=== PATIENT | female | born 2000 | race Caucasian/White ===

== ENCOUNTER 2018-04-02 19:32 | Emergency (ER) | payer OTHER ==
--- NOTE | 2018-04-02 19:52 | PDOC ---
Rapid Medical Evaluation Time Seen by Provider: 04/02/18 19:51 Medical Evaluation: Allergies Allergy/AdvReac Type Severity Reaction Status Date / Time Penicillins Allergy Intermediate Difficulty Verified 03/23/16 11:42 Breathing 04/02/18 19:53 Pt presents for vaginal discomfort after using vagisil. Exam: NAD Orders: urine, uc, gc/chlamydia testing Pt to proceed to ED for further evalaution Discharge Disposition - Diagnosis Vaginal discomfort - Referrals - Patient Instructions - Post Discharge Activity
[2018-04-02 19:56] VITALS: BP 114/74; PULSE 71; TEMP 98.1; BMI 21.0
[2018-04-02 21:10] LABS: URINE APPEARANCE SLCLOUDY; URINE BILIRUBIN NEGATIVE (<2.0 mg/dL); URINE COLOR LTYELLOW; URINE GLUCOSE (UA) NEGATIVE (NEGATIVE); URINE KETONE NEGATIVE (NEGATIVE); URINE LEUK ESTERASE 3+ (NEGATIVE); URINE NITRITE NEGATIVE (NEGATIVE); URINE PROTEIN NEGATIVE (NEGATIVE)
[2018-04-02 21:11] LABS: HCG,QUALITATIVE URINE Negative
[2018-04-02 21:26] LABS: EPI CELLS MODERATE /HPF (FEW); URINE MUCUS RARE
--- NOTE | 2018-04-02 21:45 | PDOC ---
History of Present Illness - General Chief Complaint: Vaginal Sxs Stated Complaint: DISCOMFORT Time Seen by Provider: 04/02/18 19:51 - History of Present Illness Initial Comments: 04/02/18 21:41 18-year-old female without comorbidities presents for evaluation of vaginal irritation times one day. She states 2 days ago she used a new soap with possibly of perfume she may have been ALLERGIC to yesterday she began vaginal itching and irritation and today she now has discharge. No systemic symptoms Past History - Past Medical History Allergies/Adverse Reactions: Allergies Allergy/AdvReac Type Severity Reaction Status Date / Time Penicillins Allergy Intermediate Difficulty Verified 03/23/16 11:42 Breathing Home Medications: Ambulatory Orders Fluconazole [Diflucan] 150 mg PO ONCE #1 tablet 04/02/18 Asthma: Yes - Suicide/Smoking/Psychosocial Hx Smoking History: Unknown if ever smoked Hx Alcohol Use: No Drug/Substance Use Hx: No Review of Systems - Review of Systems : Yes: Discharge *Physical Exam - Vital Signs Last Vital Signs Temp Pulse Resp BP Pulse Ox 98.1 F 71 20 114/74 99 04/02/18 19:52 04/02/18 19:52 04/02/18 19:52 04/02/18 19:52 04/02/18 19:52 - Physical Exam Comments: 04/02/18 21:42 HEAD: NC/AT EYES: Conjuntiva clear Ears: Canals and TM's normal NOSE: No d/c THROAT: Moist mucous membrances, oral pharanx clear, uvula midline NECK: Supple without adenopathy CARDIAC: S1 S2 LUNGS: CTA Full and Equal breath sounds ABDOMEN: Soft NT ND MS: Full ROM in all joints without edema NEUROLOGIC: No gross sensory or motor deficits, NVID SKIN: Normal color and temperature no lesions or rashes Pelvic examination was done with female nurse in the room. There is a white cottage cheese like vaginal discharge. No adnexal tenderness. External genitalia is normal Moderate Sedation - Procedure Monitoring Vital Signs: Procedure Monitoring Vital Signs Temperature 98.1 F 04/02/18 19:52 Pulse Rate 71 04/02/18 19:52 Respiratory Rate 20 04/02/18 19:52 Blood Pressure 114/74 04/02/18 19:52 O2 Sat by Pulse Oximetry (%) 99 04/02/18 19:52 ED Treatment Course - ADDITIONAL ORDERS Additional order review: Laboratory Results 04/02/18 20:30 Urine Color Ltyellow Urine Appearance Slcloudy Urine pH 6.0 Ur Specific [place] 1.019 Urine Protein Negative Urine Glucose (UA) Negative Urine Ketones Negative Urine Blood Negative Urine Nitrite Negative Urine Bilirubin Negative Urine Urobilinogen 2.0 H Ur Leukocyte Esterase 3+ H Urine WBC (Auto) 22 Urine RBC (Auto) 4 Ur Epithelial Cells Moderate Urine Mucus Rare Urine HCG, Qual Negative *DC/Admit/Observation/Transfer Diagnosis at time of Disposition: Vaginal discomfort, Yeast infection - Discharge Dispostion Disposition: HOME Condition at time of disposition: Stable Decision to Admit order: No - Referrals Referrals: Fela Aviles MD [Primary Care Provider] - - Patient Instructions Printed Discharge Instructions: DI for Vaginal Yeast Infection Additional Instructions: Please take Diflucan as directed. Return to the emergency room should symptoms worsen or go unresolved and follow-up with your head swamper in one to 2 days for further evaluation and treatment options. - Post Discharge Activity
== END 2018-04-02 21:57 | disposition home or self-care (01) ==
LOC: JERFT 19:32
DX: B37.3 Candidiasis of vulva and vagina (principal)
CPT/HCPCS: 36415; 81003; 81015; 84703; 87086; 87491; 87591; 99281-25

== ENCOUNTER 2018-07-01 14:20 | Emergency (ER) | payer OTHER ==
--- NOTE | 2018-07-01 14:36 | PDOC ---
Rapid Medical Evaluation Chief Complaint: Nausea/Vomiting Time Seen by Provider: 07/01/18 14:35 Medical Evaluation: Allergies Allergy/AdvReac Type Severity Reaction Status Date / Time Penicillins Allergy Intermediate Difficulty Verified 07/01/18 14:34 Breathing 07/01/18 14:35 I have performed a brief in-person evaluation of this patient. The patient presents with a chief complaint of nausea, +. States occasional vomiting, unable to tolerate meals Pertinent physical exam finding: NAD even and unlabored breathing I have ordered the following: Urinalysis, cbc, bhcg, cmp The patient will procedd to the ED for further evaluation. Discharge Disposition - Diagnosis Nausea - Referrals - Patient Instructions - Post Discharge Activity
[2018-07-01 14:37] VITALS: BP 104/72; PULSE 92; TEMP 98.2; BMI 21.2
[2018-07-01] MEDS ORDERED: SODIUM CHLORIDE 0.9% 500 ML INFUS.BAG IV ONE (14:37)
[2018-07-01 15:06] LABS: BASO % 0.3 % (0-2.0); EOS % 0.7 % (0-4.5); HEMOGLOBIN 13.3 GM/dL (10.7-15.3); LYMPH % 16.6 % (8-40); MCH 28.5 pg (25.7-33.7); MCHC 34.9 g/dl (32.0-36.0); MEAN CELL VOLUME 81.6 fl (80-96); MEAN PLT VOLUME 8.3 fl (7.5-11.1); MONO % 9.4 % (3.8-10.2); PLATELET COUNT 289 K/MM3 (134-434); RBC 4.65 M/mm3 (3.60-5.2); RDW 13.2 % (11.6-15.6); WHITE BLOOD COUNT 11.3 K/mm3 (4.0-10.0)
[2018-07-01 15:16] LABS: HCG,QUALITATIVE URINE Positive
--- NOTE | 2018-07-01 15:20 | PDOC ---
History of Present Illness - General Chief Complaint: Nausea/Vomiting Stated Complaint: NAUSEA/VOMITING Time Seen by Provider: 07/01/18 14:35 - History of Present Illness Initial Comments: 07/01/18 15:19 18-year-old female without comorbidities, 6 weeks presents for evaluation of nausea 3 days with 3 episodes of vomiting 3 days ago. Past History - Past Medical History Allergies/Adverse Reactions: Allergies Allergy/AdvReac Type Severity Reaction Status Date / Time Penicillins Allergy Intermediate Difficulty Verified 07/01/18 14:34 Breathing Home Medications: Ambulatory Orders Metoclopramide HCl [Reglan] 10 mg PO TID #30 tablet 07/01/18 Vit 108/Iron/Folic AC [ One Tablet] 1 each PO DAILY #30 tablet 07/01/18 Asthma: Yes COPD: No CHF: No - Suicide/Smoking/Psychosocial Hx Smoking History: Never smoked Hx Alcohol Use: No Drug/Substance Use Hx: No Review of Systems - Review of Systems Constitutional: No: Fever ABD/GI: Yes: Nausea, Vomiting *Physical Exam - Vital Signs Last Vital Signs Temp Pulse Resp BP Pulse Ox 98.2 F 92 H 17 104/72 98 07/01/18 14:34 07/01/18 14:34 07/01/18 14:34 07/01/18 14:34 07/01/18 14:34 - Physical Exam Comments: 07/01/18 15:20 HEAD: NC/AT EYES: Conjuntiva clear Ears: Canals and TM's normal NOSE: No d/c THROAT: Moist mucous membrances, oral pharanx clear, uvula midline NECK: Supple without adenopathy CARDIAC: S1 S2 LUNGS: CTA Full and Equal breath sounds ABDOMEN: Soft NT ND MS: Full ROM in all joints without edema NEUROLOGIC: No gross sensory or motor deficits, NVID SKIN: Normal color and temperature no lesions or rashes ED Treatment Course - LABORATORY CBC & Chemistry Diagram: 07/01/18 14:48 07/01/18 14:48 - ADDITIONAL ORDERS Additional order review: Laboratory Results 07/01/18 15:04 Urine HCG, Qual Positive - Medications Given in the ED: ED Medications Discontinued Medications Generic Name Dose Route Start Last Admin Trade Name Freq PRN Reason Stop Dose Admin Sodium Chloride 1,000 ml 07/01/18 14:37 07/01/18 15:06 Normal Saline - IV 07/01/18 14:38 1,000 ml ONCE ONE Administration Medical Decision Making - Medical Decision Making 07/01/18 16:28 Improved after IV fluids and reglan *DC/Admit/Observation/Transfer Diagnosis at time of Disposition: Nausea, Nausea and vomiting in - Discharge Dispostion Disposition: HOME Condition at time of disposition: Stable Decision to Admit order: No - Prescriptions Prescriptions: Metoclopramide HCl [Reglan] 10 mg PO TID #30 tablet - Referrals Referrals: Fela Aviles MD [Primary Care Provider] - - Patient Instructions Additional Instructions: Please take the Reglan as needed for nausea. Return to the emergency room should symptoms worsen. A multivitamin was also sent here pharmacy please take that daily. Return to the emergency room for worsening symptoms and follow-up with your primary care TRAY DRIER OPERATOR in one to 2 days for further evaluation and treatment options. - Post Discharge Activity
[2018-07-01] MEDS ORDERED: METOCLOPRAMIDE HCL INJECTION 10 MG/2 ML VIAL IVPB ONE (15:27)
[2018-07-01 15:36] LABS: ALBUMIN 4.4 g/dl (3.4-5.0); ALK PHOS 40 U/L (45-117); ANION GAP 7 MMOL/L (8-16); BILIRUBIN,TOTAL 1.3 mg/dL (0.2-1); BLOOD UREA NITROGEN 12 mg/dL (7-18); CALCIUM 9.5 mg/dL (8.5-10.1); CHLORIDE 101 mmol/L (98-107); CO2 27 mmol/L (21-32); CREATININE 0.5 mg/dL (0.55-1.3); GLUCOSE,RANDOM 80 mg/dL (74-106); POTASSIUM 4.4 mmol/L (3.5-5.1); SGOT/AST 16 U/L (15-37); SGPT/ALT 19 U/L (13-61); SODIUM 135 mmol/L (136-145); TOT PROT 7.9 g/dl (6.4-8.2)
[2018-07-01] MEDS ORDERED: METOCLOPRAMIDE HCL INJECTION 10 MG/2 ML VIAL ONE (15:36)
[2018-07-01 15:50] LABS: URINE APPEARANCE CLEAR; URINE BILIRUBIN NEGATIVE (NEGATIVE); URINE COLOR YELLOW; URINE GLUCOSE (UA) NEGATIVE (NEGATIVE); URINE KETONE NEGATIVE (NEGATIVE); URINE LEUK ESTERASE NEGATIVE (NEGATIVE); URINE NITRITE NEGATIVE (NEGATIVE); URINE PROTEIN NEGATIVE (NEGATIVE)
== END 2018-07-01 16:48 | disposition home or self-care (01) ==
LOC: JERFT 14:20
PROC: 3E033GC Introduction of Other Therapeutic Substance into Peripheral Vein, Percutaneous Approach (ICD-10-PCS; principal; 2018-07-01)
DX: O26.891 Other specified pregnancy related conditions, first trimester (principal); O21.0 Mild hyperemesis gravidarum; Z3A.01 Less than 8 weeks gestation of pregnancy
CPT/HCPCS: 36415; 80053; 81003; 84703; 85025; 96374; 99282-25

== ENCOUNTER 2018-07-28 12:19 | Emergency (ER) | payer OTHER | END 2018-07-28 14:40 | disposition home or self-care (01) | LOC: JERFT 12:19 ==

== ENCOUNTER 2018-07-31 00:23 | Emergency (ER) | payer OTHER | END 2018-07-31 04:20 | disposition home or self-care (01) | LOC: JER 00:23 ==

== ENCOUNTER 2018-08-04 17:18 | Emergency (ER) | payer OTHER ==
[2018-08-04 17:26] VITALS: BMI 21.2
[2018-08-04 18:10] LABS: URINE APPEARANCE CLEAR; URINE BILIRUBIN NEGATIVE (NEGATIVE); URINE COLOR YELLOW; URINE GLUCOSE (UA) NEGATIVE (NEGATIVE); URINE KETONE NEGATIVE (NEGATIVE); URINE LEUK ESTERASE NEGATIVE (NEGATIVE); URINE NITRITE NEGATIVE (NEGATIVE); URINE PROTEIN NEGATIVE (NEGATIVE); URINE UROBILINOGEN 0.2 mg/dL (0.2-1.0)
[2018-08-04 18:51] LABS: HEMATOCRIT 33.9 % (32.4-45.2); MCH 28.7 pg (25.7-33.7); MEAN CELL VOLUME 81.2 fl (80-96); RBC 4.18 M/mm3 (3.60-5.2); WHITE BLOOD COUNT 12.6 K/mm3 (4.0-10.0)
[2018-08-04 18:52] LABS: BASO % 0.3 % (0-2.0); EOS % 1.3 % (0-4.5); LYMPH % 17.2 % (8-40); MCHC 35.3 g/dl (32.0-36.0); MEAN PLT VOLUME 7.6 fl (7.5-11.1); MONO % 6.8 % (3.8-10.2); NEUT % 74.4 % (42.8-82.8); RDW 13.5 % (11.6-15.6)
[2018-08-04 18:53] LABS: PLATELET ESTIMATE ADEQUATE
[2018-08-04 18:59] LABS: PLATELET COUNT 245 K/MM3 (134-434)
--- NOTE | 2018-08-04 19:14 | PDOC ---
History of Present Illness - General Chief Complaint: Vaginal Bleeding Stated Complaint: VAGINAL BLEEDING Time Seen by Provider: 08/04/18 17:39 History Source: Patient Exam Limitations: No Limitations Past History - Travel Traveled outside of the country in the last 30 days: No Close contact w/someone who was outside of country & ill: No - Past Medical History Allergies/Adverse Reactions: Allergies Allergy/AdvReac Type Severity Reaction Status Date / Time Penicillins Allergy Intermediate Difficulty Verified 08/04/18 17:26 Breathing Home Medications: Ambulatory Orders Metoclopramide HCl [Reglan] 10 mg PO TID #30 tablet 07/01/18 Mv-Mn/Iron/FA/Herbal/Digestive [ One Tablet] 1 each PO DAILY #30 tablet 07/01/18 Miconazole Nitrate [Miconazole 7] 100 mg VG ASDIR #7 supp.vag 07/28/18 Nitrofurantoin Monohyd/M-Cryst [Macrobid -] 100 mg PO BID #14 capsule 07/28/18 Asthma: Yes COPD: No CHF: No - Reproductive History Is Patient Now?: Yes (#): 1 Para: 0 - Suicide/Smoking/Psychosocial Hx Smoking History: Never smoked Hx Alcohol Use: No Drug/Substance Use Hx: No Review of Systems - Review of Systems Able to Perform ROS?: Yes Comments:: 08/04/18 19:04 CONSTITUTIONAL: Absent: fever, chills, diaphoresis, generalized weakness, malaise, loss of appetite HEENT: Absent: rhinorrhea, nasal congestion, throat pain, throat swelling, difficulty swallowing, mouth swelling, ear pain, eye pain, visual Changes CARDIOVASCULAR: Absent: chest pain, loss of consciousness, palpitations, irregular heart rate, peripheral edema RESPIRATORY: Absent: cough, shortness of breath, dyspnea with exertion, orthopnea, wheezing, stridor, hemoptysis GASTROINTESTINAL: Absent: abdominal pain, abdominal distension, nausea, vomiting, diarrhea, constipation, melena, hematochezia GENITOURINARY: Present: vaginal bleeding; Absent: dysuria, frequency, urgency, hesitancy, hematuria, flank pain, genital pain MUSCULOSKELETAL: Absent: myalgia, arthralgia, joint swelling SKIN: Absent: rash, itching, pallor HEMATOLOGIC/IMMUNOLOGIC: Absent: easy bleeding, easy bruising, lymphadenopathy, frequent infections ENDOCRINE: Absent: unexplained weight gain, unexplained weight loss, heat intolerance, cold intolerance NEUROLOGIC: Absent: headache, focal weakness or paresthesias, dizziness, unsteady gait, seizure, mental status changes, bladder or bowel incontinence PSYCHIATRIC: Absent: anxiety, depression, suicidal or homicidal ideation, hallucinations. Is the patient limited Mongolian proficient: No *Physical Exam - Vital Signs Last Vital Signs Temp Pulse Resp BP Pulse Ox 98.4 F 83 18 117/62 99 08/04/18 17:23 08/04/18 17:23 08/04/18 17:23 08/04/18 17:23 08/04/18 17:23 - Physical Exam Comments: 08/04/18 19:04 GENERAL: Well developed, well nourished. Awake and alert. No acute distress. HEENT: Normocephalic, atraumatic. PERRLA, EOMI. No conjunctival pallor. Sclera are non- icteric. Moist mucous membranes. Oropharynx is clear. NECK: Supple. Full ROM. No JVD. Carotid pulses 2+ and symmetric. No lymphadenopathy. CARDIOVASCULAR: Regular rate and rhythm. No murmurs, rubs, or gallops. Distal pulses are 2+ and symmetric. PULMONARY: No evidence of respiratory distress. Lungs clear to auscultation bilaterally. No wheezing, rales or rhonchi. ABDOMINAL: Soft. Non-tender. Non-distended. No rebound or guarding. No organomegaly. Normoactive bowel sounds. Pelvic: External genitalia normal without lesions. Vaginal vault is with minimal blood. Cervix is long and closed. No cervical motion tenderness. Uterus is nontender and normal in size. Adnexa are nontender and without masses. MUSCULOSKELETAL Normal range of motion at all joints. No bony deformities or tenderness. No CVA tenderness. EXTREMITIES: No cyanosis. No clubbing. No edema. No calf tenderness. SKIN: Warm and dry. Normal capillary refill. No rashes. No jaundice. NEUROLOGICAL: Alert, awake, appropriate. Cranial nerves 2-12 intact. No deficits to light touch and temperature in face, upper extremities and lower extremities. No motor deficits in the in face, upper extremities and lower extremities. Normoreflexic in the upper and lower extremities. Normal speech. Toes are down- going bilaterally. Gait is normal without ataxia. PSYCHIATRIC: Cooperative. Good eye contact. Appropriate mood and affect. ED Treatment Course - LABORATORY CBC & Chemistry Diagram: 08/04/18 17:58 - ADDITIONAL ORDERS Additional order review: Laboratory Results 08/04/18 17:58 Urine Color Yellow Urine Appearance Clear Urine pH 6.0 Ur Specific [place] 1.012 Urine Protein Negative Urine Glucose (UA) Negative Urine Ketones Negative Urine Blood Negative Urine Nitrite Negative Urine Bilirubin Negative Urine Urobilinogen 0.2 Ur Leukocyte Esterase Negative 08/04/18 17:58 RBC 4.18 MCV 81.2 MCHC 35.3 RDW 13.5 MPV 7.6 Neutrophils % 74.4 D Lymphocytes % 17.2 D Monocytes % 6.8 Eosinophils % 1.3 Basophils % 0.3 - RADIOLOGY Radiology Studies Ordered: Category Date Time Status <14WKS US [US] Stat Ultrasound 08/04/18 17:45 Taken Medical Decision Making - Medical Decision Making 08/04/18 19:05 The patient is a 18 F , who presents to the ER with vaginal bleeding since this morning. Pt states that the bleeding was scant and picked up during the course of the day. She states she had intercourse this morning. She was seen one week ago for similar issues and has an IUP approximately 11 weeks gestation. Denies fevers, chills, abdominal pain, dysuria, hematuria, vaginal discharge. Pt was also recently treated for a UTI A/P: Vaginal bleeding On exam, scant blood in the vaginal vault. Cervix is closed Pt O-. Recieved Rhogam last week for her first onset of vaginal bleeding Basic labs ordered along with US and urine Pending US reading and beta Sign out given to RADHA Garcia *DC/Admit/Observation/Transfer Diagnosis at time of Disposition: Threatened - Discharge Dispostion Disposition: HOME Condition at time of disposition: Stable - Referrals - Patient Instructions Printed Discharge Instructions: DI for Threatened Additional Instructions: Your Discharge Instructions: You must call primary care physician within 24 hours to arrange follow-up. Return to the Emergency Department with any new, persistent or worsening symptoms, for fever, chills, SOB, dizziness or any other concerning changes that may occur. - Post Discharge Activity
--- NOTE | 2018-08-04 19:43 | PDOC ---
*Physical Exam - Vital Signs Last Vital Signs Temp Pulse Resp BP Pulse Ox 98.4 F 83 18 117/62 99 08/04/18 17:23 08/04/18 17:23 08/04/18 17:23 08/04/18 17:23 08/04/18 17:23 ED Treatment Course - LABORATORY CBC & Chemistry Diagram: 08/04/18 17:58 - ADDITIONAL ORDERS Additional order review: Laboratory Results 08/04/18 08/04/18 17:58 17:58 Beta HCG, Quant 93967.2 Urine Color Yellow Urine Appearance Clear Urine pH 6.0 Ur Specific [place] 1.012 Urine Protein Negative Urine Glucose (UA) Negative Urine Ketones Negative Urine Blood Negative Urine Nitrite Negative Urine Bilirubin Negative Urine Urobilinogen 0.2 Ur Leukocyte Esterase Negative 08/04/18 17:58 RBC 4.18 MCV 81.2 MCHC 35.3 RDW 13.5 MPV 7.6 Neutrophils % 74.4 D Lymphocytes % 17.2 D Monocytes % 6.8 Eosinophils % 1.3 Basophils % 0.3 Medical Decision Making - Medical Decision Making 08/04/18 19:42 Patient was endorsed to me to follow ultrasound and disposition. Patient is in no acute distress. Patient Full Name: ELLIOT SUAREZ Patient Accession No: [id number] Patient : 2000 Reason for Exam: vag bleeding 10 weeks preg Referring Physician: TOA ROJO Patient Name: DANIELA ZARATE THIS IS A PRELIMINARY REPORT FROM IMAGING EDUCATIONAL PROGRAM DIRECTOR DATE OF SERVICE: 2018-08-04 18:17:48 IMAGES: 34 EXAM: <14WKS US HISTORY: 10 weeks with vaginal bleeding COMPARISON: None. FINDINGS: There is a single live intrauterine gestation with heart rate of 168 bpm Approximate age of 10 weeks, 4 days by mean crown-rump length of 3.69 cm A yolk sac is present Amniotic fluid volume is subjectively adequate No evidence of subchorionic hemorrhage The cervix is closed and measures 2.6 cm in length The ovaries are normal in size and appearance with arterial and venous flow demonstrated to both ovaries on Doppler evaluation No adnexal masses visualized No free fluid THIS DOCUMENT HAS BEEN ELECTRONICALLY SIGNED Raffaele Pruitt MD 08/04/2018 19:19 KOURTNEY Hussein Please call Imaging Erecting Crane Operator [phone] with questions. INTERPRETING RADIOLOGIST: Raffaele Pruitt MD Electronically Signed: Aug 04, 2018 07:21PM EDT I discussed the physical exam findings, ancillary test results and final diagnoses with the patient. I answered all of the patient's questions. The patient was satisfied with the care received and felt comfortable with the discharge plan and treatment plan. The Patient agrees to follow up with the primary care physician within 24-72 hours. *DC/Admit/Observation/Transfer Diagnosis at time of Disposition: Threatened - Discharge Dispostion Disposition: HOME Condition at time of disposition: Stable - Referrals - Patient Instructions Printed Discharge Instructions: DI for Threatened Additional Instructions: Your Discharge Instructions: You must call primary care physician within 24 hours to arrange follow-up. Return to the Emergency Department with any new, persistent or worsening symptoms, for fever, chills, SOB, dizziness or any other concerning changes that may occur. - Post Discharge Activity
[2018-08-04 19:44] VITALS: BP 106/66; PULSE 78; TEMP 98.1
== END 2018-08-04 20:07 | disposition home or self-care (01) ==
LOC: JER 17:18
DX: O26.891 Other specified pregnancy related conditions, first trimester (principal); O20.0 Threatened abortion; Z3A.10 10 weeks gestation of pregnancy
CPT/HCPCS: 36415; 76801-TC; 81003; 84702; 85025; 86850; 86870; 86900; 86901; 86902; 87086; 99282-25

== ENCOUNTER 2018-09-19 22:13 | Emergency (ER) | payer OTHER ==
[2018-09-19 22:39] VITALS: BP 90/57; PULSE 82; TEMP 99; BMI 22.6
--- NOTE | 2018-09-19 23:15 | PDOC ---
Documentation entered by Ruba Hernandez SCRIBE, acting as scribe for Shiloh Montalvo DO. Shiloh Montalvo DO: This documentation has been prepared by the David mcclain Adrianna, SCRIBE, under my direction and personally reviewed by me in its entirety. I confirm that the documentation accurately reflects all work, treatment, procedures, and medical decision making performed by me. Attending Attestation - Resident Resident Name: Jose EduardoNeri - ED Attending Attestation I have performed the following: I have examined & evaluated the patient, The case was reviewed & discussed with the resident, I agree w/resident's findings & plan, Exceptions are as noted - HPI HPI: The patient is a 18 F (currently at 17 weeks gestation), with no significant PMH, who presents to the ED for evaluation of vaginal discharge, itching and burning for 2 days. Patient reports thick, white vaginal discharge w / itching that started yesterday. She notes dysuria that began today. Denies abdominal pain or vaginal bleeding. Denies fever, chills, nausea, vomit, diarrhea, chest pain, SOB. Allergies: Penicillins Surgical History: None reported Social History: Denies EtOH, tobacco, or illicit drug use PCP: Dr. Aviles OBDENISE: Dr. Valenzuela - Physicial Exam PE: Constitutional: Awake, alert, oriented. No acute distress. Head: Normocephalic. Atraumatic Eyes: PERRL. EOMI. Conjunctivae are not pale. ENT: Mucous membranes are moist and intact. Posterior pharynx without exudates or erythema. Uvula midline. Neck: Supple. Full ROM. No lymphadenopathy. Cardiovascular: Regular rate. Regular rhythm. S1, S2 regular. Distal pulses are 2+ and symmetric. Pulmonary/Chest: No evidence of respiratory distress. Clear to auscultation bilaterally No wheezing, rales or rhonchi. Abdominal: +Gravid below umbilicus. Soft. There is no tenderness. No rebound , guarding or rigidity. No organomegaly. No palpable masses. Good bowel sounds. Back: No CVA tenderness. Musculoskeletal: No edema. No cyanosis. No clubbing. Full range of motion in all extremities. No calf tenderness. Radial/pedal pulses are intact and 2+ bilaterally Skin: Skin is warm and dry. No petechiae. No purpura. Neurological: Alert and oriented to person, place, and time. Cranial nerves II -XII are grossly intact. Normal speech. Strength is grossly symmetric. No sensory deficits. Psychiatric: Good eye contact. Normal interaction, affect and behavior. - Medical Decision Making 09/19/18 23:05 I, Dr. Shiloh Montalvo, DO, attest that this document has been prepared under my direction and personally reviewed by me in its entirety. I further attest, that it accurately reflects all work, treatment, procedures and medical decision -making performed by me. 09/19/18 23:05 18yo at 17 weeks gestation with vaginal itching and discharge -also with dysuria today -follows w dr. valenzuela -no vaginal bleeding -no f/c -2 days of symptoms -pelvic per the resident -pocus shows iup at 17w with fhr 143 -will send ua, ucx, will need treatment for yeast infection -aptima sent from ua 09/20/18 00:27 pt with uti and yeast infection will give topical cream for yeast infection and macrobid for uti will repeat vitals if improved bp, stable for dc to home
--- NOTE | 2018-09-19 23:49 | PDOC ---
History of Present Illness - General Chief Complaint: Vaginal Sxs Stated Complaint: VAGINAL DISCOMFORT (4 MONTHS AND 2 WEEKS ) Time Seen by Provider: 09/19/18 22:36 History Source: Patient Exam Limitations: No Limitations - History of Present Illness Initial Comments: 09/19/18 23:44 18 yo female pmh asthma, G1PO currently 17 weeks presents to the ED for 2 days of vaginal itching/burning with cottage cheese white discharge and suprapubic abdominal pain/burning and increased frequency on urination. Pt last OB check (Dr. Martin) 09/12 with reported normal dopplers FHR in the 160s. No concerns during , up to date on [employer] checks, denies vaginal bleed , abdominal pain, back pain, F/C/N/V, CP, SOB. Past History - Past Medical History Allergies/Adverse Reactions: Allergies Allergy/AdvReac Type Severity Reaction Status Date / Time Penicillins Allergy Intermediate Difficulty Verified 09/19/18 22:29 Breathing Home Medications: Ambulatory Orders Metoclopramide HCl [Reglan] 10 mg PO TID #30 tablet 07/01/18 Mv-Mn/Iron/FA/Herbal/Digestive [ One Tablet] 1 each PO DAILY #30 tablet 07/01/18 Miconazole Nitrate [Miconazole 7] 100 mg VG ASDIR #7 supp.vag 07/28/18 Clotrimazole [Gyne-Lotrimin] 21 gm VG DAILY 7 Days #7 cream.appl 09/19/18 Nitrofurantoin Monohyd/M-Cryst [Macrobid -] 100 mg PO BID #10 capsule 09/20/18 Asthma: Yes COPD: No CHF: No - Reproductive History (#): 1 Para: 0 - Suicide/Smoking/Psychosocial Hx Smoking History: Never smoked Hx Alcohol Use: No Drug/Substance Use Hx: No Review of Systems - Review of Systems Constitutional: No: Chills, Fever Respiratory: No: Shortness of Breath Cardiac (ROS): No: Chest Pain, Edema ABD/GI: No: Constipated, Diarrhea, Nausea, Vomiting : Yes: Burning, Dysuria, Discharge, Frequency Musculoskeletal: No: Back Pain *Physical Exam - Vital Signs Last Vital Signs Temp Pulse Resp BP Pulse Ox 99 F 82 18 90/57 L 98 09/19/18 22:27 09/19/18 22:27 09/19/18 22:27 09/19/18 22:27 09/19/18 22:27 - Physical Exam General Appearance: Yes: Nourished, Appropriately Dressed. No: Apparent Distress HEENT: positive: EOMI Neck: positive: Supple. negative: Carotid bruit Respiratory/Chest: positive: Lungs Clear, Normal Breath Sounds. negative: Respiratory Distress, Rales, Rhonchi, Stridor, Wheezing Cardiovascular: positive: Regular Rhythm, Regular Rate, S1, S2. negative: Edema , JVD, Murmur Vascular Pulses: Dorsalis-Pedis (R): 4+, Doralis-Pedis (L): 4+ Female Pelvic Exam: positive: normal external exam, cervical os closed, normal adnexa. negative: CMT, adnexal tenderness, vaginal bleeding Gastrointestinal/Abdominal: positive: Soft. negative: Pulsatile Mass, Guarding , Rebound, Tenderness Musculoskeletal: negative: CVA Tenderness Extremity: positive: Normal Capillary Refill, Normal Inspection Integumentary: positive: Normal Color, Dry, Warm Neurologic: positive: Fully Oriented, Alert, Normal Mood/Affect, Normal Response Medical Decision Making - Medical Decision Making 09/19/18 23:50 18 yo female pmh asthma, G1PO currently 17 weeks presents to the ED for 2 days of vaginal itching/burning with cottage cheese white discharge and suprapubic abdominal pain/burning and increased frequency on urination. Pt last OB check (Dr. Martin) 09/12 with reported normal dopplers FHR in the 160s. No concerns during , up to date on [employer] checks, denies vaginal bleed , abdominal pain, back pain, F/C/N/V, CP, SOB. vitals stable, BP recheck bedside trans abdominal US shows live IUP. See attending note NAD, AOX3, ambulates without difficulty 09/20/18 00:47 UA shows evidence of UTI will treat with Macrobid due to Pen allergy Pelvic exam show thick white discharge with cottage cheese appearance, pt has hx of yeast infection Likely yeast infection, will treat with local antifungal sent urine gc/chlam pt safe for DC home with PCP and [employer] f/u *DC/Admit/Observation/Transfer Diagnosis at time of Disposition: UTI (urinary tract infection) - Discharge Dispostion Disposition: HOME Condition at time of disposition: Stable Decision to Admit order: No - Prescriptions Prescriptions: Clotrimazole [Gyne-Lotrimin] 21 gm VG DAILY 7 Days #7 cream.appl Nitrofurantoin Monohyd/M-Cryst [Macrobid -] 100 mg PO BID #10 capsule - Referrals Referrals: Fela Aviles MD [Primary Care Provider] - - Patient Instructions Printed Discharge Instructions: DI for Urinary Tract Infection (UTI) Additional Instructions: Please see your Primary Doctor within the next 48 hours and your [employer] as soon as possible. Take the antibiotic and antifungal medication as prescribed for your yeast infection and UTI. Return to the ER for new or concerning symptoms including but not limited to: fevers, difficulty eating or drinking, abdominal pain, vaginal discharge/bleeding. Thank you - Post Discharge Activity
[2018-09-20 00:16] LABS: EPI CELLS 9.1 /HPF (0-5/HPF); HYALINE CASTS 8 /lpf (0-8); URINE APPEARANCE CLOUDY; URINE BACTERIA 72.6 /hpf (NEGATIVE); URINE BILIRUBIN NEGATIVE (NEGATIVE); URINE COLOR YELLOW; URINE GLUCOSE (UA) NEGATIVE (NEGATIVE); URINE KETONE NEGATIVE (NEGATIVE); URINE LEUK ESTERASE 1+ (NEGATIVE); URINE NITRITE NEGATIVE (NEGATIVE); URINE PROTEIN NEGATIVE (NEGATIVE); URINE RBC 2 /hpf (0-4); URINE UROBILINOGEN 0.2 mg/dL (0.2-1.0); URINE WBC 2 /hpf (0-5)
[2018-09-20] MEDS ORDERED: NITROFURANTOIN MACROCRYSTAL 50 MG CAPSULE (FP) PO SCH (00:30)
[2018-09-20] MEDS ORDERED: NITROFURANTOIN MACROCRYSTAL 50 MG CAPSULE (FP) ONE (00:37)
== END 2018-09-20 00:51 | disposition home or self-care (01) ==
LOC: JER 22:13
DX: O23.42 Unspecified infection of urinary tract in pregnancy, second trimester (principal); Z3A.17 17 weeks gestation of pregnancy; Z88.0 Allergy status to penicillin
CPT/HCPCS: 36415; 76815; 81003; 87086; 87491; 87591; 99283-25

== ENCOUNTER 2018-10-07 20:05 | Emergency (ER) | payer OTHER ==
--- NOTE | 2018-10-07 20:42 | PDOC ---
Rapid Medical Evaluation Time Seen by Provider: 10/07/18 20:40 Medical Evaluation: Allergies Allergy/AdvReac Type Severity Reaction Status Date / Time Penicillins Allergy Intermediate Difficulty Verified 09/19/18 22:29 Breathing 10/07/18 20:40 HPI: 5 months gravid c/o dysuria and vagianl d/c PE: No gross deficits ORDERS: UA and Cx Discharge Disposition - Diagnosis Vaginal discomfort - Referrals - Patient Instructions - Post Discharge Activity
[2018-10-07 20:45] VITALS: BP 114/47; PULSE 86; TEMP 98.3; BMI 23.6
--- NOTE | 2018-10-07 21:36 | PDOC ---
History of Present Illness - General Chief Complaint: Vaginal Sxs Stated Complaint: VAGINAL DISCOMFORT Time Seen by Provider: 10/07/18 20:40 History Source: Patient, Old Records Exam Limitations: No Limitations - History of Present Illness Travel History: No Initial Comments: 10/07/18 21:45 HISTORY OF PRESENT ILLNESS: This is a 18-year-old prima with an LMP of and 2 date of 02/23/19 who presents emergency department for evaluation of vaginal discharge, lower back pain, vaginal itching and burning. Patient reports she was recently seen and treated for UTI as well as a yeast infection. Patient reports having multiple [place] infection during this . Patient admits to having slight dysuria but denies any fevers or chills. No recent travel or sick contacts. PAST MEDICAL HISTORY: Denies past medical history SURGICAL HISTORY: Denies ALLERGIES: PCN REVIEW OF SYSTEMS General/Constitutional: Denies fever or chills. Denies weakness, weight change. HEENT: Denies change in vision. Denies ear pain or discharge. Denies sore throat. Cardiovascular: Denies chest pain or shortness of breath. Respiratory: Denies cough, wheezing, or hemoptysis. Gastrointestinal: Denies nausea, vomiting, diarrhea or constipation. Denies rectal bleeding. Genitourinary: see HPI Musculoskeletal: Denies joint or muscle swelling or pain. Denies neck or back pain. Skin and breasts: Denies rash or easy bruising. Neurologic: Denies headache, vertigo, loss of consciousness, or loss of sensation. Psychiatric: Denies depression or anxiety. Endocrine: Denies increased thirst. Denies abnormal weight change. Hematologic/Lymphatic: Denies anemia, easy bleeding, or history of blood clots. Allergic/Immunologic: Denies hives or skin allergy. Denies latex allergy. PHYSICAL EXAM General Appearance: Well-appearing, appropriately dressed. No apparent distress , no intoxication. Respiratory/Chest: Lungs CTAB. No shortness of breath, chest tenderness, respiratory distress, accessory muscle use. No crackles, rales, rhonchi, stridor , wheezing, dullness Cardiovascular: RRR. S1, S2. No JVD, murmur, bradycardia, tachycardia. Vascular Pulses: Dorsalis-Pedis (R): 2+, Dorsalis-Pedis (L): 2+ Gastrointestinal/Abdominal: Normal bowel sounds. Gravid abdomen. No pulsatile mass, guarding, hernia, hepatomegaly, splenomegaly. Lymphatic: No adenopathy, tenderness. Musculoskeletal/Extremities: Normal inspection. FROM of all extremities, normal capillary refill. Pelvis Stable. No CVA tenderness. No tenderness to extremities, pedal edema, swelling, erythema or deformity. Past History - Past Medical History Allergies/Adverse Reactions: Allergies Allergy/AdvReac Type Severity Reaction Status Date / Time Penicillins Allergy Intermediate Difficulty Verified 09/19/18 22:29 Breathing Home Medications: Ambulatory Orders Metoclopramide HCl [Reglan] 10 mg PO TID #30 tablet 07/01/18 Mv-Mn/Iron/FA/Herbal/Digestive [ One Tablet] 1 each PO DAILY #30 tablet 07/01/18 Miconazole Nitrate [Miconazole 7] 100 mg VG ASDIR #7 supp.vag 07/28/18 Clotrimazole [Gyne-Lotrimin] 21 gm VG DAILY 7 Days #7 cream.appl 09/19/18 Nitrofurantoin Monohyd/M-Cryst [Macrobid -] 100 mg PO BID #10 capsule 10/08/18 metroNIDAZOLE 0.75% VAG. 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 Female Pelvic Exam: positive: normal external exam, cervical os closed, normal adnexa, discharge (malodorous thin green cervical discharge). negative: CMT, adnexal tenderness, vaginal bleeding ED Treatment Course - LABORATORY CBC & Chemistry Diagram: 10/07/18 22:15 10/07/18 22:15 Medical Decision Making - Medical Decision Making 10/07/18 21:47 A/P: 18-year-old female with lower back pain and vaginal discharge in regnancy CBC, CMP, type and screen, beta hCG Urinalysis, urine culture Ultrasound Reassess 10/07/18 23:24 Ultrasound as read by Dr. Zimmer: Single viable intrauterine gestation at approximately 20 weeks 1 day. heart rate 159. No definite sonographic abnormality is identified. Urinalysis notable for 3+ leuk esterase and 62 WBCs on high-power field. Discharge home with prescription for Macrobid and MetroGel to treat trichomoniasis and urinary tract infection. Patient will be sent to labor and delivery for evaluation. 10/08/18 00:03 Marcelino on labor and delivery is aware of patient and need for monitoring. *DC/Admit/Observation/Transfer Diagnosis at time of Disposition: Vaginal discomfort UTI (urinary tract infection) Qualifiers: Urinary tract infection type: acute cystitis Hematuria presence: without hematuria Qualified Code(s): N30.00 - Acute cystitis without hematuria - Discharge Dispostion Disposition: HOME Condition at time of disposition: Stable Decision to Admit order: No - Prescriptions Prescriptions: metroNIDAZOLE 0.75% VAG. GEL [Metrogel 0.75% *Vaginal Gel* -] 1 applic VG HS 5 Days #1 tube Nitrofurantoin Monohyd/M-Cryst [Macrobid -] 100 mg PO BID #10 capsule - Referrals Referrals: Fela Aviles MD [Primary Care Provider] - - Patient Instructions Additional Instructions: Rest, drink lots of fluids: Teas, water, soups Avoid contact with others until fevers and symptoms resolved Lots of handwashing and good hygiene Continue [id number] medications for symptomatic relief Tylenol for fever and pain Continue all of antibiotics until completed Followup with private physician in one week for repeat urinalysis/reevaluation Return to emergency department for worsened symptoms, fevers, dehydration - Post Discharge Activity
--- NOTE | 2018-10-07 21:42 | PDOC ---
*Physical Exam - Vital Signs Last Vital Signs Temp Pulse Resp BP Pulse Ox 98.3 F 86 20 114/47 L 98 10/07/18 20:40 10/07/18 20:40 10/07/18 20:40 10/07/18 20:40 10/07/18 20:40 Medical Decision Making - Medical Decision Making 10/07/18 21:41 Patient seen by the advanced practice provider under my direct supervision. Ancillary testing reviewed as necessary. I agree with plan as outlined by the advanced practice provider. *DC/Admit/Observation/Transfer Diagnosis at time of Disposition: Vaginal discomfort - Referrals Referrals: Fela Aviles MD [Primary Care Provider] - - Patient Instructions - Post Discharge Activity
[2018-10-07 22:40] LABS: EPI CELLS 5.5 /HPF (0-5/HPF); HYALINE CASTS 23 /lpf (0-8); PH,URINE 5.5 (5.0-8.0); URINE APPEARANCE CLOUDY; URINE BACTERIA 796.4 /hpf (NEGATIVE); URINE BILIRUBIN NEGATIVE (NEGATIVE); URINE COLOR YELLOW; URINE GLUCOSE (UA) NEGATIVE (NEGATIVE); URINE KETONE NEGATIVE (NEGATIVE); URINE LEUK ESTERASE 3+ (NEGATIVE); URINE NITRITE NEGATIVE (NEGATIVE); URINE PROTEIN NEGATIVE (NEGATIVE); URINE RBC 2 /hpf (0-4); URINE WBC 62 /hpf (0-5)
[2018-10-07 22:50] LABS: BASO % 0.1 % (0-2.0); EOS % 1.8 % (0-4.5); HEMATOCRIT 31.7 % (32.4-45.2); HEMOGLOBIN 11.3 GM/dL (10.7-15.3); LYMPH % 18.2 % (8-40); MCH 29.8 pg (25.7-33.7); MCHC 35.5 g/dl (32.0-36.0); MEAN CELL VOLUME 83.9 fl (80-96); MEAN PLT VOLUME 8.4 fl (7.5-11.1); MONO % 8.6 % (3.8-10.2); NEUT % 71.3 % (42.8-82.8); PLATELET COUNT 192 K/MM3 (134-434); RBC 3.78 M/mm3 (3.60-5.2); RDW 13.2 % (11.6-15.6); WHITE BLOOD COUNT 11.7 K/mm3 (4.0-10.0)
[2018-10-07 23:46] LABS: ALBUMIN 3.2 g/dl (3.4-5.0); BILIRUBIN,TOTAL 0.3 mg/dL (0.2-1); BLOOD UREA NITROGEN 7.4 mg/dL (7-18); CALCIUM 8.4 mg/dL (8.5-10.1); CREATININE 0.5 mg/dL (0.55-1.3); POTASSIUM 3.5 mmol/L (3.5-5.1); TOT PROT 6.5 g/dl (6.4-8.2)
== END 2018-10-08 02:00 | disposition home or self-care (01) ==
LOC: JERFT 20:05 → JER 20:05
DX: N30.00 Acute cystitis without hematuria (principal); N89.8 Other specified noninflammatory disorders of vagina
CPT/HCPCS: 36415; 76815-TC; 80053; 81003; 84702; 85025; 87070; 87077; 87086; 87205; 99283-25

== ENCOUNTER 2018-12-15 18:16 | Emergency (ER) | payer OTHER ==
[2018-12-15 18:20] VITALS: BMI 26.5
[2018-12-15 19:48] VITALS: BP 124/70; PULSE 92; TEMP 98.4
[2018-12-15] MEDS ORDERED: DEXTROSE 5%-LACTATED RINGERS 500 ML IV ONE ×2 (20:15→21:15)
--- NOTE | 2018-12-16 02:38 | PDOC ---
Documentation entered by Emre Pruitt SCRIBE, acting as scribe for Ayanna Ornelas MD. Ayanna Ornelas MD: This documentation has been prepared by the Sonal mcclain Nirvannie, SCRIBE, under my direction and personally reviewed by me in its entirety. I confirm that the documentation accurately reflects all work, treatment, procedures, and medical decision making performed by me. History of Present Illness - General Chief Complaint: Injury Stated Complaint: FALL (30 WKS ) Time Seen by Provider: 12/15/18 18:24 History Source: Patient Exam Limitations: No Limitations - History of Present Illness Initial Comments: 12/15/18 18:46 The patient is a 18 year old 30 weeks female A0, with no significant past medical history, who presents to the emergency department s/p mechanical fall with, tailbone pain. As per patient, she was walking her dog at which time she tripped over it subsequently falling on her side in attempt to not fall onto her stomach. While in the ED, patients only complaint is pain to the tailbone. She denies any vaginal bleeding, pelvic cramping, or abnormal discharge, She denies recent fevers, chills, headache or dizziness. She denies recent nausea, vomit, diarrhea or constipation. She denies recent dysuria, frequency, urgency or hematuria. She denies recent chest pain or shortness of breath. Allergies: Penicillins. Due Date: February 23 MUSICAL PERFORMER: Dr. Valenzuela Past History - Past Medical History Allergies/Adverse Reactions: Allergies Allergy/AdvReac Type Severity Reaction Status Date / Time Penicillins Allergy Intermediate Difficulty Verified 12/15/18 18:20 Breathing Home Medications: Ambulatory Orders NK [No Known Home Medication] 12/15/18 Asthma: Yes COPD: No CHF: No - Reproductive History (#): 1 Para: 0 - Psycho Social/Smoking Cessation Hx Smoking History: Never smoked Hx Alcohol Use: No Drug/Substance Use Hx: No Review of Systems - Review of Systems Able to Perform ROS?: Yes Comments:: 12/15/18 18:46 CONSTITUTIONAL: Absent: fever, chills, diaphoresis, generalized weakness, malaise, loss of appetite HEENT: Absent: rhinorrhea, nasal congestion, throat pain, throat swelling, difficulty swallowing, mouth swelling, ear pain, eye pain, visual Changes CARDIOVASCULAR: Absent: chest pain, syncope, palpitations, irregular heart rate, lightheadedness , peripheral edema RESPIRATORY: Absent: cough, shortness of breath, dyspnea with exertion, orthopnea, wheezing, stridor, hemoptysis GASTROINTESTINAL: Absent: abdominal pain, abdominal distension, nausea, vomiting, diarrhea, constipation, melena, hematochezia GENITOURINARY: Absent: dysuria, frequency, urgency, hesitancy, hematuria, flank pain, genital pain MUSCULOSKELETAL: Present: Tailbone pain. Absent: joint swelling SKIN: Absent: rash, itching, pallor HEMATOLOGIC/IMMUNOLOGIC: Absent: easy bleeding, easy bruising, lymphadenopathy, frequent infections ENDOCRINE: Absent: unexplained weight gain, unexplained weight loss, heat intolerance, cold intolerance NEUROLOGIC: Absent: headache, focal weakness or paresthesias, dizziness, unsteady gait, seizure, mental status changes, bladder or bowel incontinence PSYCHIATRIC: Absent: anxiety, depression, suicidal or homicidal ideation, hallucinations. All Other Systems: Reviewed and Negative *Physical Exam - Vital Signs Last Vital Signs Temp Pulse Resp BP Pulse Ox 97.9 F 99 H 18 133/76 99 12/15/18 18:18 12/15/18 18:18 12/15/18 18:18 12/15/18 18:18 12/15/18 18:18 - Physical Exam Comments: 12/15/18 18:47 GENERAL: Well developed, well nourished. Awake and alert. No acute distress. HEENT: Normocephalic, atraumatic. PERRLA, EOMI. No conjunctival pallor. Sclera are non- icteric. Moist mucous membranes. Oropharynx is clear. NECK: Supple. Full ROM. No JVD. Carotid pulses 2+ and symmetric, without bruits. No thyromegaly. No lymphadenopathy. CARDIOVASCULAR: Regular rate and rhythm. No murmurs, rubs, or gallops. Distal pulses are 2+ and symmetric. PULMONARY: No evidence of respiratory distress. Lungs clear to auscultation bilaterally. No wheezing, rales or rhonchi. ABDOMINAL: Soft. Non-tender. Non-distended. No rebound or guarding. No organomegaly. Normoactive bowel sounds. MUSCULOSKELETAL Normal range of motion at all joints. No bony deformities or tenderness. No CVA tenderness. EXTREMITIES: No cyanosis. No clubbing. No edema. No calf tenderness. SKIN: Warm and dry. Normal capillary refill. No rashes. No jaundice. NEUROLOGICAL: Alert, awake, appropriate. Cranial nerves 2-12 intact. No deficits to light touch and temperature in face, upper extremities and lower extremities. No motor deficits in the in face, upper extremities and lower extremities. Normoreflexic in the upper and lower extremities. Normal speech. Toes are down- going bilaterally. Gait is normal without ataxia. PSYCHIATRIC: Cooperative. Good eye contact. Appropriate mood and affect. Medical Decision Making - Medical Decision Making 12/16/18 02:37 18-year-old female who is 30 weeks tripped over her dog and fell on her left side and buttocks. She denies any head trauma or loss of consciousness She has no focal neuro deficits She is ambulating with ease She has no extremity deformities and motor strength is 5 out of 5 bilaterally She has no midline cervical vertebral tenderness She denies any pelvic bleeding or cramping On physical exam she has some coccyx tenderness Patient was sent to L&D for further evaluation Discharge - Discharge Information Problems reviewed: Yes Clinical Impression/Diagnosis: Third trimester Fall Qualifiers: Encounter type: initial encounter Qualified Code(s): W19.XXXA - Unspecified fall, initial encounter Low back pain Qualifiers: Chronicity: acute Back pain laterality: bilateral Sciatica presence: without sciatica Qualified Code(s): M54.5 - Low back pain Condition: Good Disposition: HOME - Follow up/Referral Referrals: Elisabeth Valenzuela MD [Staff Physician] - Fela Aviles MD [Primary Care Provider] - - Patient Discharge Instructions Patient Printed Discharge Instructions: DI for Low Back Pain Additional Instructions: PLEASE REST YOU MAY TAKE TYLENOL FOR PAIN RETURN FOR WORSENING SYMPTOMS Discharge home. Normal activity as tolerated. Heating pad, hot shower or ice pack for discomfort. Use pillows for positioning. Call Dr Valenzuela in the morning. Return to the ED for worsening or persistent symptoms. Return to Labor and delivery if You start to have contractions You break your water You have any vaginal bleeding You do not feel the baby moving - Post Discharge Activity
== END 2018-12-15 22:15 | disposition home or self-care (01) ==
LOC: JER 18:16
PROC: 3E0337Z Introduction of Electrolytic and Water Balance Substance into Peripheral Vein, Percutaneous Approach (ICD-10-PCS; principal; 2018-12-15)
DX: O99.89 Other specified diseases and conditions complicating pregnancy, childbirth and the puerperium (principal); M54.5 Low back pain; W01.0XXA Fall on same level from slipping, tripping and stumbling without subsequent striking against object, initial encounter; Y93.K1 Activity, walking an animal; Y92.89 Other specified places as the place of occurrence of the external cause; Y99.8 Other external cause status; Z3A.30 30 weeks gestation of pregnancy; Z88.0 Allergy status to penicillin
CPT/HCPCS: 96360; 96361; 99282-25

== ENCOUNTER 2019-02-09 10:24 | Emergency (ER) | payer OTHER ==
[2019-02-09 10:30] VITALS: BP 133/71; PULSE 110; TEMP 98.2; BMI 30.1
[2019-02-09] MEDS ORDERED: SODIUM CHLORIDE FOR INHALATION 3 ML VIAL.NEB IH ONE (11:21)
--- NOTE | 2019-02-09 12:11 | PDOC ---
History of Present Illness - General Chief Complaint: Sore Throat Stated Complaint: SORE THROAT/CONGESTED/COUGHING Time Seen by Provider: 02/09/19 11:15 History Source: Patient Exam Limitations: No Limitations Past History - Past Medical History Allergies/Adverse Reactions: Allergies Allergy/AdvReac Type Severity Reaction Status Date / Time Penicillins Allergy Intermediate Difficulty Verified 02/09/19 10:30 Breathing Home Medications: Ambulatory Orders No122/Iron/Folic Acid [ Multi Tablet] 1 each PO DAILY 02/09/19 Sodium Chloride Inhalation [Normal Saline For Inhalation -] 3 ml IH Q6H #30 vial.neb 02/09/19 Asthma: Yes COPD: No CHF: No - Reproductive History (#): 1 Para: 0 - Psycho Social/Smoking Cessation Hx Smoking History: Never smoked Hx Alcohol Use: No Drug/Substance Use Hx: No *Physical Exam - Vital Signs Last Vital Signs Temp Pulse Resp BP Pulse Ox 98.2 F 110 H 18 133/71 99 02/09/19 10:28 02/09/19 10:28 02/09/19 10:28 02/09/19 10:28 02/09/19 10:28 - Physical Exam General Appearance: No: Apparent Distress HEENT: positive: Normal ENT Inspection, TMs Normal, Pharynx Normal Respiratory/Chest: positive: Lungs Clear, Normal Breath Sounds. negative: Respiratory Distress Cardiovascular: positive: Regular Rhythm, Regular Rate, S1, S2. negative: Murmur Gastrointestinal/Abdominal: positive: Other (gravid uterus) Neurologic: positive: Alert ED Treatment Course - Medications Given in the ED: ED Medications Discontinued Medications Generic Name Dose Route Start Last Admin Trade Name Teofiloq PRN Reason Stop Dose Admin Sodium Chloride 3 ml 02/09/19 11:21 02/09/19 11:31 Normal Saline For Inhalation - IH 02/09/19 11:22 3 ml ONCE ONE Administration Medical Decision Making - Medical Decision Making 18 y/o F currently 38 weeks presents with dry cough x 3 days along with throat discomfort. Patient started losing her voice yesterday. +rhinorrhea and mild congestion. Denies fever, sob, cp, abd pain, vomiting, vaginal bleeding. Likely viral URI/laryngitis Given saline neb with slight improvement Will be sent to OB for FHR monitoring D/W WILL Linda at L&D 02/09/19 12:05 Discharge - Discharge Information Problems reviewed: Yes Clinical Impression/Diagnosis: Laryngitis Condition: Stable Disposition: HOME - Admission No - Additional Discharge Information Prescriptions: Sodium Chloride Inhalation [Normal Saline For Inhalation -] 3 ml IH Q6H #30 vial.neb - Follow up/Referral Referrals: Fela Aviles MD [Primary Care Provider] - - Patient Discharge Instructions Patient Printed Discharge Instructions: DI for Laryngitis Additional Instructions: Thank you for choosing [facility]. It was a pleasure taking care of you. Recommend rest You may use saline neb as indicated You may use humidifier at night Follow-up with your doctor in 2-3 days Return to the Emergency Department if your symptoms worsen or persist or have other concerning symptoms. - Post Discharge Activity
== END 2019-02-09 12:16 | disposition home or self-care (01) ==
LOC: JERFT 10:24
PROC: 3E0F7GC Introduction of Other Therapeutic Substance into Respiratory Tract, Via Natural or Artificial Opening (ICD-10-PCS; principal; 2019-02-09)
DX: J04.0 Acute laryngitis (principal); Z88.0 Allergy status to penicillin; J45.909 Unspecified asthma, uncomplicated
CPT/HCPCS: 99281-25

== ENCOUNTER 2019-02-21 05:20 | Inpatient (IN) | payer OTHER ==
[2019-02-21] MEDS ORDERED: OXYTOCIN 20 UNITS in 0.9% NS 20 UNIT/1,000 ML INFUS.BAG IV ONE (05:53)
[2019-02-21] MEDS ORDERED: LIDOCAINE HCL 1% PRESERVATIVE FREE - 30ML VIAL ONE (05:53)
[2019-02-21 06:05] LABS: BASO % 0.9 % (0-2.0); EOS % 0.2 % (0-4.5); HEMATOCRIT 38.4 % (32.4-45.2); HEMOGLOBIN 13.5 GM/dL (10.7-15.3); LYMPH % 13.7 % (8-40); MCH 29.3 pg (25.7-33.7); MCHC 35.1 g/dl (32.0-36.0); MEAN CELL VOLUME 83.5 fl (80-96); MEAN PLT VOLUME 9.4 fl (7.5-11.1); MONO % 6.1 % (3.8-10.2); NEUT % 79.1 % (42.8-82.8); PLATELET COUNT 166 K/MM3 (134-434); RBC 4.59 M/mm3 (3.60-5.2); WHITE BLOOD COUNT 16.9 K/mm3 (4.0-10.0)
[2019-02-21 06:14] LABS: INR 0.92 (0.83-1.09); PROTHROMBIN TIME (PATIENT) 10.8 SEC (9.7-13.0)
[2019-02-21 06:16] LABS: ACTIVATED PTT 28.4 SECONDS (25.2-36.5)
[2019-02-21 06:26] LABS: BLOOD UREA NITROGEN 9.2 mg/dL (7-18); CALCIUM 9.3 mg/dL (8.5-10.1); CREATININE 0.6 mg/dL (0.55-1.3); POTASSIUM 3.5 mmol/L (3.5-5.1)
[2019-02-21] MEDS: OXYTOCIN 20 UNITS in 0.9% NS 20 UNIT/1,000 ML INFUS.BAG IV SCH ×2 (06:40→10:10)
[2019-02-21] MEDS ORDERED: WITCH HAZEL 50% (TUCKS) 40 PAD/JAR PAD TP PRN (06:55)
[2019-02-21] MEDS ORDERED: BENZOCAINE 28 GM HEMORRHOIDAL OINTMENT TP PRN (06:55)
[2019-02-21] MEDS ORDERED: BISACODYL 10 MG SUPP.RECT RC PRN (06:55)
[2019-02-21] MEDS ORDERED: METHYLERGONOVINE MALEATE 0.2 MG/1 ML AMP IM PRN (06:55)
--- NOTE | 2019-02-21 06:55 | HP ---
Past Medical History - Admission Chief Complaint: Labor pain History of Present Illness: 18 yo , @ 39 weeks gestation, EDC 02/23/19, admitted for labor pain. Upon admission she was fully dilated. History Source: Patient Limitations to Obtaining History: No Limitations - Past Medical History ...: 1 ...Para: 0 - Past Surgical History Past Surgical History: Yes: None Hx Myomectomy: No Hx Transabdominal Cerclage: No - Smoking History Smoking history: Never smoked - Alcohol/Substance Use Hx Alcohol Use: No - Social History Usual Living Arrangement: Yes: With Parent History of Recent Travel: No Home Medications - Allergies Allergies/Adverse Reactions: Allergies Allergy/AdvReac Type Severity Reaction Status Date / Time Penicillins Allergy Intermediate Itching Verified 02/21/19 02:09 - Home Medications Home Medications: Ambulatory Orders No122/Iron/Folic Acid [ Multi Tablet] 1 each PO DAILY 02/09/19 Family Medical History Family History: Unremarkable Review of Systems - Review of Systems Constitutional: reports: No Symptoms Eyes: reports: No Symptoms HENT: reports: No Symptoms Neck: reports: No Symptoms Cardiovascular: reports: No Symptoms Respiratory: reports: No Symptoms Gastrointestinal: reports: No Symptoms Genitourinary: reports: Pain Breasts: reports: No Symptoms Reported Musculoskeletal: reports: No Symptoms Integumentary: reports: No Symptoms Neurological: reports: No Symptoms Endocrine: reports: No Symptoms Hematology/Lymphatic: reports: No Symptoms Psychiatric: reports: No Symptoms Pain Intensity: 9 Physical Exam - Maternity Constitutional: Yes: Well Nourished Eyes: Yes: Conjunctiva Clear HENT: Yes: Atraumatic Neck: Yes: Supple Cardiovascular: Yes: Regular Rate and Rhythm Lungs: Clear to auscultation - Abdominal Exam/OB Number of Fetuses: Single Presentation: Vertex - Vaginal Exam/OB Vaginal Bleediing: No Presentation: Vertex/Position - Physical Exam ...Motor Strength: WNL Psychiatric: Yes: Alert, Oriented - Labs Lab Results: CBC, BMP 02/21/19 05:55 02/21/19 05:55 Problem List - Problems (1) Pain during labor Problems reviewed: Yes Code(s): O99.89 - OTH DISEASES AND CONDITIONS COMPL PREG/CHLDBRTH; R52 - PAIN, UNSPECIFIED Assessment/Plan Active labor Admit to L&D Anticipate
--- NOTE | 2019-02-21 06:59 | PN ---
Delivery - Delivery Vaginal Delivery: Spontaneous Episiotomy/Laceration: 1st degree EBL (cc): 300 Remarks - Remarks Remarks: Normal spontaneous vaginal delivery of a live infant boy over first degree laceration. Nose / Oropharynx suctioned @ perineum. Cord clamped and cut. Baby handed to nurse Placenta expelled spontaneously intact. Mother in stable condition.
[2019-02-21] MEDS ORDERED: DEXTROSE 5%-LACTATED RINGERS 1,000 ML IV SCH (07:00)
[2019-02-21 07:34] VITALS: BMI 31.1
[2019-02-21] MEDS: FERROUS SO4 325 MG TABLET (FP) PO SCH ×2 (08:55→17:05)
[2019-02-21] MEDS: IBUPROFEN 600 MG TABLET (FP) PO PRN ×4 (08:55→20:45)
[2019-02-21] MEDS: ACETAMINOPHEN 325 MG TABLET (FP) PO PRN ×4 (08:55→20:46)
[2019-02-21] MEDS: BENZOCAINE 20% 57 GM BOTTLE TP PRN (10:15)
[2019-02-21] MEDS: PRENATAL VITAMINS W/ FOLIC ACID TABLET (FP) PO SCH (10:30)
[2019-02-22 07:41] LABS: BASO % 0.2 % (0-2.0); EOS % 0.6 % (0-4.5); HEMATOCRIT 31.1 % (32.4-45.2); HEMOGLOBIN 10.9 GM/dL (10.7-15.3); LYMPH % 15.7 % (8-40); MCH 29.5 pg (25.7-33.7); MCHC 35.1 g/dl (32.0-36.0); MEAN CELL VOLUME 83.9 fl (80-96); MEAN PLT VOLUME 8.9 fl (7.5-11.1); MONO % 6.7 % (3.8-10.2); NEUT % 76.8 % (42.8-82.8); PLATELET COUNT 164 K/MM3 (134-434); RBC 3.71 M/mm3 (3.60-5.2); RDW 12.9 % (11.6-15.6); WHITE BLOOD COUNT 16.3 K/mm3 (4.0-10.0)
[2019-02-22] MEDS: FERROUS SO4 325 MG TABLET (FP) PO SCH ×2 (08:57→17:35)
[2019-02-22] MEDS: PRENATAL VITAMINS W/ FOLIC ACID TABLET (FP) PO SCH (10:23)
[2019-02-22] MEDS: BENZOCAINE 20% 57 GM BOTTLE TP PRN (10:31)
[2019-02-22] MEDS: IBUPROFEN 600 MG TABLET (FP) PO PRN ×3 (12:47→21:56)
[2019-02-22] MEDS: ACETAMINOPHEN 325 MG TABLET (FP) PO PRN ×3 (12:47→21:55)
[2019-02-22] MEDS ORDERED: SENNOSIDES/DOCUSATE COMBO (SENNA PLUS) TABLET (UD) PO PRN (22:00)
--- NOTE | 2019-02-22 22:36 | PN ---
Post Note - Post Date of Delivery: 02/21/19 Post Day: 1 Vital Signs: Vital Signs - 24 hr 02/22/19 02/22/19 02/22/19 01:00 05:44 09:55 Temperature 98.0 F 98.0 F 98.5 F Pulse Rate 80 86 95 H Respiratory 20 20 18 Rate Blood Pressure 125/65 121/77 113/62 02/22/19 02/22/19 14:23 21:52 Temperature 98.6 F 988.9 F H Pulse Rate 98 H 76 Respiratory 18 20 Rate Blood Pressure 120/74 105/52 L Labs: Laboratory Results - last 24 hr 02/22/19 07:08 WBC 16.3 H RBC 3.71 Hgb 10.9 Hct 31.1 L D MCV 83.9 MCH 29.5 MCHC 35.1 RDW 12.9 Plt Count 164 MPV 8.9 Absolute Neuts (auto) 12.5 H Neutrophils % 76.8 Lymphocytes % 15.7 Monocytes % 6.7 Eosinophils % 0.6 D Basophils % 0.2 Nucleated RBC % 0 - Subjective Subjective: No Complaints - Objective Afebrile: Yes Breast: Not engorged Abdomen: Soft, Non-tender Uterus: Fundus firm Vagina: Scant lochia Extremities: Non-tender - Assessment/Plan (1) (normal spontaneous vaginal delivery) Assessment: S/P Normal Plan: Routine Care
[2019-02-23] MEDS: IBUPROFEN 600 MG TABLET (FP) PO PRN (08:08)
[2019-02-23] MEDS: ACETAMINOPHEN 325 MG TABLET (FP) PO PRN (08:09)
[2019-02-23] MEDS: FERROUS SO4 325 MG TABLET (FP) PO SCH (08:48)
[2019-02-23] MEDS: PRENATAL VITAMINS W/ FOLIC ACID TABLET (FP) PO SCH (10:41)
--- NOTE | 2019-02-23 11:22 | DS ---
Physical Exam-DONOR RELATIONS MANAGER Vital Signs: Vital Signs Temperature 98.9 F 02/22/19 21:52 Pulse Rate 76 02/22/19 21:52 Respiratory Rate 20 02/22/19 21:52 Blood Pressure 105/52 L 02/22/19 21:52 O2 Sat by Pulse Oximetry (%) 100 02/21/19 07:30 Constitutional: Yes: Well Nourished, No Distress Respiratory: Yes: WNL, Regular, CTA Bilaterally Gastrointestinal: Yes: WNL, Soft ....Post : Yes: Uterus firm, Uterus non-tender Breast(s): Yes: WNL Musculoskeletal: Yes: WNL Extremities: Yes: WNL Neurological: Yes: WNL, Alert, Oriented Labs: CBC, BMP 02/22/19 07:08 02/21/19 05:55 Delivery - Delivery Vaginal Delivery: Spontaneous Type of Anesthesia: None Episiotomy/Laceration: Vaginal Extension/lac, 1st degree EBL (cc): 300 Delivery, Single - Stages of Labor Date 1st Stage Initiatied: 02/21/19 Time 1st Stage Initiated: 01:00 Date 2nd Stage Initiated: 02/21/19 Time 2nd Stage Initiated: 05:30 Date of Delivery: 02/21/19 Time of Delivery: 06:35 Time Placenta Delivered: 06:40 - 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 Gender: Male Weight: 7 lb 6 oz Position: Right, OA Total Hours ROM (Hrs/Mins): 40min - 1 Minute Total Score: 9 5 Minutes Total Score: 9 - Rozet Feeding Plan Initial Plan: Exclusive throughout hospitalization Discharge Summary Problems reviewed: Yes Reason For Visit: LABOR Current Active Problems (normal spontaneous vaginal delivery) (Acute) Pain during labor (Acute) Procedures: Principal: normal vaginal delivery Condition: Good - Instructions Diet, Activity, Other Instructions: Physical activity Resume your normal everyday activity as tolerated no heavy lifting or exercise until seen by your surgeon. You may walk unlimited francia of and climb stairs. You may resume driving the car when you feel safe and comfortable behind the wheel. No sexual activity as instructed. Wound care If you have a bandage, leave it on, and keep dry for 48-72 hours. After that time discard the outer bandage. If they are tapes on the skin under the out of bandage leave them in place. They will peel off in the next 7 to 10 days. Do Not Peel them off. You may shower the day after surgery. If there are tapes present on the skin, you may shower over them. Diet There are no dietary restrictions. Eat healthy, high-fiber foods. Drink 6 to 8 glasses of liquid each day. This will assist in keeping your bowels are regular. Pain management You may take Tylenol or acetaminophen or Ibuprofen (for example, Motrin, Advil etc.) from my pain prescription medication is ordered should be taken as prescribed for moderate to severe pain. Call MD for any of the following: Severe pain not relieved by medication Fever of 101 or higher Excessive bleeding or drainage on dressing Inability to urinate Referrals: Elisabeth Valenzuela MD [Staff Physician] - Disposition: HOME - Home Medications Comprehensive Discharge Medication List: Ambulatory Orders No122/Iron/Folic Acid [ Multi Tablet] 1 each PO DAILY 02/09/19
[2019-02-23 14:39] VITALS: BP 121/72; PULSE 88; TEMP 98.4
== END 2019-02-23 14:20 | disposition home or self-care (01) | DRG 560 ==
LOC: JLDR 05:20 → J3W 08:07
PROVIDERS: ADMIT Obstetrics & Gynecology; ATTEND Obstetrics & Gynecology
PROC: 0HQ9XZZ Repair Perineum Skin, External Approach (ICD-10-PCS; principal; 2019-02-21)
PROC: 10E0XZZ Delivery of Products of Conception, External Approach (ICD-10-PCS; 2019-02-21)
DX: O70.0 First degree perineal laceration during delivery (principal); Z3A.39 39 weeks gestation of pregnancy; Z37.0 Single live birth
CPT/HCPCS: 36415; 59409; 80048; 85025; 85461; 85610; 85730; 86593; 86850; 86900; 86901; 86999; 87389

== ENCOUNTER 2019-02-24 18:44 | Emergency (ER) | payer OTHER ==
[2019-02-24 18:59] VITALS: BMI 30.1
--- NOTE | 2019-02-24 18:59 | PDOC ---
Rapid Medical Evaluation Time Seen by Provider: 02/24/19 18:57 Medical Evaluation: Allergies Allergy/AdvReac Type Severity Reaction Status Date / Time Penicillins Allergy Intermediate Itching Verified 02/21/19 02:09 02/24/19 18:57 CC: "My legs are swollen." PE: 2+ pitting edema to b/l ankles Orders: sono Patient will proceed to ER for further evaluation. Discharge Disposition - Diagnosis Edema - Referrals Referrals: Fela Aviles MD [Primary Care Provider] - - Patient Instructions - Post Discharge Activity
--- NOTE | 2019-02-24 19:53 | PDOC ---
History of Present Illness - General Chief Complaint: Edema Stated Complaint: BOTH FEET SWELLING Time Seen by Provider: 02/24/19 18:57 History Source: Patient - History of Present Illness Initial Comments: 02/24/19 20:53 18 year old femalec/o b/l lower extremity edema with right leg worse than left. patient also reports shortness of breath worse with activity. patient is 3 days post s/p . denies abdominal pain. reports vaginal bleeding is minimal. patient reports vaginal pain. denies taking pain medication due to breast feeding. Past History - Past Medical History Allergies/Adverse Reactions: Allergies Allergy/AdvReac Type Severity Reaction Status Date / Time Penicillins Allergy Intermediate Itching Verified 02/21/19 02:09 Home Medications: Ambulatory Orders No122/Iron/Folic Acid [ Multi Tablet] 1 each PO DAILY 02/09/19 Cephalexin Monohydrate [Keflex -] 500 mg PO BID #20 capsule 02/25/19 Ibuprofen 600 mg PO QID PRN #20 tablet 02/25/19 Asthma: No Cancer: No Cardiac Disorders: No COPD: No CHF: No Diabetes: No HTN: No Seizures: No Thyroid Disease: No - Reproductive History (#): 1 Para: 0 - Psycho Social/Smoking Cessation Hx Smoking History: Never smoked Have you smoked in the past 12 months: No Hx Alcohol Use: No Drug/Substance Use Hx: No Hx Substance Use Treatment: No *Physical Exam - Vital Signs Last Vital Signs Temp Pulse Resp BP Pulse Ox 98 F 94 H 18 121/79 98 02/24/19 18:56 02/24/19 18:56 02/24/19 18:56 02/24/19 18:56 02/24/19 18:56 - Physical Exam General Appearance: Yes: Appropriately Dressed Respiratory/Chest: positive: Lungs Clear, Normal Breath Sounds. negative: Respiratory Distress, Accessory Muscle Use Cardiovascular: positive: Regular Rhythm, Regular Rate Gastrointestinal/Abdominal: positive: Normal Bowel Sounds, Soft, Other (fundus at the umbilicus). negative: Tender Musculoskeletal: positive: CVA Tenderness (L) Extremity: positive: Other (+ 2 nonpitting edema to legs right worse than left) Integumentary: positive: Normal Color, Dry, Warm Neurologic: positive: Fully Oriented, Alert Heart Score/ECG Review - History History: Slightly suspicious - Electrocardiogram EKG: Normal - Age Age: </= 45 - Risk Factors Based on the list above the patient has:: No risk factors known - Troponin Troponin: </= normal limit - Score Heart Score - Total: 0 - ECG Intrepretation Rhythm: Regular Rhythm Comment:: 02/25/19 01:43 NSR with sinus arrythmia : 70 bpm ED Treatment Course - LABORATORY CBC & Chemistry Diagram: 02/24/19 21:30 02/24/19 21:50 Medical Decision Making - Medical Decision Making 02/24/19 23:26 A: post pedal edema ; shortness of breath P: HELLP syndrome labs cbc cmp UA: + 2 leuks with large wbc. will treat BNP/ troponin: negative 02/25/19 00:46 02/25/19 02:02 cephalexin given with no adverse reaction in the ED.. will prescribe for home Discharge - Discharge Information Problems reviewed: Yes Clinical Impression/Diagnosis: Pedal edema Dyspnea Qualifiers: Dyspnea type: shortness of breath Qualified Code(s): R06.02 - Shortness of breath UTI (urinary tract infection) Qualifiers: Urinary tract infection type: acute cystitis Hematuria presence: without hematuria Qualified Code(s): N30.00 - Acute cystitis without hematuria Disposition: HOME - Additional Discharge Information Prescriptions: Cephalexin Monohydrate [Keflex -] 500 mg PO BID #20 capsule Ibuprofen 600 mg PO QID PRN #20 tablet PRN Reason: Pain - Follow up/Referral Referrals: Fela Aviles MD [Primary Care Provider] - - Patient Discharge Instructions Patient Printed Discharge Instructions: Urinary Tract Infection Additional Instructions: drink plenty of fluids keep your legs elevated. follow up with your hot worker as soon as possible. - Post Discharge Activity
[2019-02-24] MEDS ORDERED: IBUPROFEN 600 MG TABLET (FP) PO ONE ×2 (20:51→21:36)
[2019-02-24 20:57] LABS: HYALINE CASTS 22 /lpf (0-8); URINE APPEARANCE TURBID; URINE BILIRUBIN NEGATIVE (NEGATIVE); URINE COLOR ORANGE; URINE GLUCOSE (UA) NEGATIVE (NEGATIVE); URINE KETONE NEGATIVE (NEGATIVE); URINE LEUK ESTERASE 2+ (NEGATIVE); URINE NITRITE NEGATIVE (NEGATIVE); URINE PROTEIN 2+ (NEGATIVE); URINE RBC 476 /hpf (0-4); URINE WBC 1034 /hpf (0-5)
[2019-02-24 21:46] LABS: BASO % 0.4 % (0-2.0); EOS % 3.1 % (0-4.5); HEMATOCRIT 30.7 % (32.4-45.2); HEMOGLOBIN 10.7 GM/dL (10.7-15.3); LYMPH % 19.5 % (8-40); MCH 29.4 pg (25.7-33.7); MCHC 34.7 g/dl (32.0-36.0); MEAN CELL VOLUME 84.8 fl (80-96); MONO % 6.9 % (3.8-10.2); NEUT % 70.1 % (42.8-82.8); PLATELET COUNT 223 K/MM3 (134-434); RBC 3.62 M/mm3 (3.60-5.2); RDW 13.1 % (11.6-15.6); RETICULOCYTES 2.32 % (0.5-1.5); WHITE BLOOD COUNT 12.8 K/mm3 (4.0-10.0)
[2019-02-24 22:02] LABS: INR 0.95 (0.83-1.09); PROTHROMBIN TIME (PATIENT) 11.2 SEC (9.7-13.0)
[2019-02-24 22:15] LABS: URIC ACID 3.7 mg/dL (2.6-7.2)
[2019-02-24 22:21] LABS: ALBUMIN 2.9 g/dl (3.4-5.0); ALK PHOS 129 U/L (45-117); ANION GAP 7 MMOL/L (8-16); BILIRUBIN,TOTAL 0.5 mg/dL (0.2-1); BLOOD UREA NITROGEN 11.1 mg/dL (7-18); CALCIUM 9.2 mg/dL (8.5-10.1); CHLORIDE 108 mmol/L (98-107); CO2 26 mmol/L (21-32); CREATININE 0.4 mg/dL (0.55-1.3); GLUCOSE,RANDOM 79 mg/dL (74-106); POTASSIUM 3.7 mmol/L (3.5-5.1); SGOT/AST 44 U/L (15-37); SGPT/ALT 56 U/L (13-61); SODIUM 141 mmol/L (136-145); TOT PROT 6.3 g/dl (6.4-8.2)
[2019-02-24] MEDS ORDERED: SODIUM CHLORIDE 1,000 ML IV STA (22:23)
[2019-02-24 22:45] VITALS: BP 113/73; PULSE 93; TEMP 97.8
[2019-02-25 00:17] LABS: N-TERMINAL BNP 53.7 pg/ml (5-125)
--- NOTE | 2019-02-25 00:29 | PDOC ---
*Physical Exam - Vital Signs Last Vital Signs Temp Pulse Resp BP Pulse Ox 97.8 F 93 H 17 113/73 98 02/24/19 21:35 02/24/19 21:35 02/24/19 21:35 02/24/19 21:35 02/24/19 21:35 ED Treatment Course - LABORATORY CBC & Chemistry Diagram: 02/24/19 21:30 02/24/19 21:50 - ADDITIONAL ORDERS Additional order review: Laboratory Results 02/24/19 02/24/19 02/24/19 21:50 21:30 21:30 PT with INR 11.20 INR 0.95 PTT (Actin FS) D-Dimer Sodium Cancelled 141 Potassium Cancelled 3.7 Chloride Cancelled 108 H Carbon Dioxide Cancelled 26 Anion Gap Cancelled 7 L BUN Cancelled 11.1 Creatinine Cancelled 0.4 L Est GFR (CKD-EPI)AfAm Cancelled 173.78 Est GFR (CKD-EPI)NonAf Cancelled 149.94 Random Glucose Cancelled 79 Uric Acid Calcium Cancelled 9.2 Total Bilirubin Cancelled 0.5 GGT AST Cancelled 44 H ALT Cancelled 56 Alkaline Phosphatase Cancelled 129 H Troponin I < 0.02 B-Natriuretic Peptide 53.7 Total Protein Cancelled 6.3 L Albumin Cancelled 2.9 L Urine Color Urine Appearance Urine pH Ur Specific [place] Urine Protein Urine Glucose (UA) Urine Ketones Urine Blood Urine Nitrite Urine Bilirubin Urine Urobilinogen Ur Leukocyte Esterase Urine WBC (Auto) Urine RBC (Auto) Urine Casts (Auto) U Pathogenic Cast Auto U Epithel Cells (Auto) Urine Bacteria (Auto) 02/24/19 02/24/19 02/24/19 21:30 21:30 21:30 PT with INR INR PTT (Actin FS) 30.2 D-Dimer 1076 H Sodium Potassium Chloride Carbon Dioxide Anion Gap BUN Creatinine Est GFR (CKD-EPI)AfAm Est GFR (CKD-EPI)NonAf Random Glucose Uric Acid 3.7 Calcium Total Bilirubin GGT AST ALT 56 Alkaline Phosphatase Troponin I B-Natriuretic Peptide Total Protein Albumin Urine Color Urine Appearance Urine pH Ur Specific [place] Urine Protein Urine Glucose (UA) Urine Ketones Urine Blood Urine Nitrite Urine Bilirubin Urine Urobilinogen Ur Leukocyte Esterase Urine WBC (Auto) Urine RBC (Auto) Urine Casts (Auto) U Pathogenic Cast Auto U Epithel Cells (Auto) Urine Bacteria (Auto) 02/24/19 02/24/19 20:20 19:53 PT with INR INR PTT (Actin FS) D-Dimer Sodium Potassium Chloride Carbon Dioxide Anion Gap BUN Creatinine Est GFR (CKD-EPI)AfAm Est GFR (CKD-EPI)NonAf Random Glucose Uric Acid Calcium Total Bilirubin GGT 16 AST ALT Alkaline Phosphatase Troponin I B-Natriuretic Peptide Total Protein Albumin Urine Color [place] Urine Appearance Turbid Urine pH 6.0 Ur Specific [place] 1.020 Urine Protein 2+ H Urine Glucose (UA) Negative Urine Ketones Negative Urine Blood 3+ H Urine Nitrite Negative Urine Bilirubin Negative Urine Urobilinogen 1.0 Ur Leukocyte Esterase 2+ H Urine WBC (Auto) 1034 Urine RBC (Auto) 476 Urine Casts (Auto) 22 U Pathogenic Cast Auto Negative U Epithel Cells (Auto) 5.0 Urine Bacteria (Auto) 60.0 02/24/19 21:30 RBC 3.62 MCV 84.8 MCHC 34.7 RDW 13.1 MPV 8.0 D Neutrophils % 70.1 Lymphocytes % 19.5 D Monocytes % 6.9 Eosinophils % 3.1 D Basophils % 0.4 - Medications Given in the ED: ED Medications Discontinued Medications Generic Name Dose Route Start Last Admin Trade Name Freq PRN Reason Stop Dose Admin Sodium Chloride 1,000 mls @ 1,000 mls/hr 02/24/19 22:23 02/24/19 22:41 Normal Saline - IV 02/24/19 23:22 1,000 mls/hr ASDIR STA Administration Ibuprofen 600 mg 02/24/19 20:51 02/24/19 21:35 Motrin - PO 02/24/19 20:52 600 mg ONCE ONE Administration Medical Decision Making - Medical Decision Making 02/25/19 00:28 Patient seen by the advanced practice provider under my direct supervision. Ancillary testing reviewed as necessary. I agree with plan as outlined by the advanced practice provider. Discharge - Discharge Information Problems reviewed: Yes Clinical Impression/Diagnosis: Pedal edema, Dyspnea - Follow up/Referral Referrals: Fela Aviles MD [Primary Care Provider] - - Patient Discharge Instructions - Post Discharge Activity
[2019-02-25] MEDS ORDERED: CEPHALEXIN MONOHYDRATE 500 MG CAPSULE (UD) PO ONE (00:41)
[2019-02-25] MEDS ORDERED: CEPHALEXIN MONOHYDRATE 500 MG CAPSULE (UD) ONE (01:26)
--- NOTE | 2019-02-25 10:28 | EKG ---
Test Reason : Blood Pressure : / mmHG Vent. Rate : 070 BPM Atrial Rate : 070 BPM P-R Int : 140 ms QRS Dur : 074 ms QT Int : 382 ms P-R-T Axes : 067 071 047 degrees QTc Int : 412 ms NORMAL SINUS RHYTHM WITH SINUS ARRHYTHMIA NORMAL ECG NO PREVIOUS ECGS AVAILABLE Confirmed by MD Meaghan, Phil ([id number]) on 02/25/2019 10:28:42 AM Referred By: Confirmed By:Phil Harding MD
== END 2019-02-25 02:40 | disposition home or self-care (01) ==
LOC: JER 18:44 → JERFT 18:44 → JER 02-25 02:40
PROC: 3E0337Z Introduction of Electrolytic and Water Balance Substance into Peripheral Vein, Percutaneous Approach (ICD-10-PCS; principal; 2019-02-24)
DX: O12.05 Gestational edema, complicating the puerperium (principal); O86.22 Infection of bladder following delivery
CPT/HCPCS: 36415; 71046-TC-FY; 71275-TC; 80053; 81003; 82977; 83880; 84460; 84484; 84550; 85025; 85044; 85379; 85610; 85730; 93005; 93010; 93970-TC; 96360; 99282-25; J7030; Q9967

== ENCOUNTER 2020-05-09 21:16 | Emergency (ER) | payer OTHER ==
[2020-05-09 21:22] VITALS: BP 116/80; PULSE 78; TEMP 98.5; BMI 27.1
[2020-05-09] MEDS ORDERED: LIDOCAINE PATCH REMOVAL MC SCH (22:00)
[2020-05-09] MEDS ORDERED: IBUPROFEN 600 MG TABLET (FP) PO ONE ×2 (22:06→22:15)
[2020-05-09] MEDS ORDERED: LIDOCAINE 5% TOPICAL PATCH TP ONE (22:06)
[2020-05-09] MEDS ORDERED: LIDOCAINE 5% TOPICAL PATCH ONE (22:15)
== END 2020-05-09 22:25 | disposition home or self-care (01) ==
LOC: JER 21:16 → JERFT 21:16
DX: M54.9 Dorsalgia, unspecified (principal)
CPT/HCPCS: 99284-25